=== PATIENT | female | born 1955 | race Caucasian/White ===

== ENCOUNTER 2016-12-13 05:21 | Day surgery (SDC) | payer BC ==
[2016-12-12 14:55] LABS: BASOPHILS 0.2 % (0-2); EOSINOPHILS 4.2 % (0-7); HEMATOCRIT 40.2 % (36.0-48.0); HEMOGLOBIN 13.7 g/dL (12-16); IMMATURE GRANULOCYTES 0.2 % (0-5); LYMPHOCYTES 34.1 % (15-50); MCH 31.1 pg (26.0-34.0); MCHC 34.1 g/dL (31.0-37.0); MCV 91.4 fL (80.0-100.0); MEAN PLATELET VOLUME 10.8 fL (7.4-10.4); NEUTROPHILS 56.3 % (40-80); PLATELET COUNT 207 10x3/uL (130-400); RDW 13.9 % (11.5-14.5)
[2016-12-12 15:32] LABS: CALC OSMOLALITY 278 mosm/kg (275-300); CALCIUM 9.8 mg/dL (8.5-10.1); CARBON DIOXIDE 28.6 mmol/L (21.0-32.0); CHLORIDE - SERUM 103 mmol/L (98-107); CREATININE - SERUM 0.7 mg/dL (0.6-1.3); GLUCOSE 100 mg/dL (74-106); POTASSIUM - SERUM 3.5 mmol/L (3.5-5.1); SODIUM 141 mmol/L (136-145); UREA NITROGEN 8 mg/dL (7-18); eGFR NON AFRICAN AMERICAN > 90 mL/min (90-120)
[~2016-12-13 05:21] MED LIST: BAYER CHEWABLE81 MG PO; GABAPENTIN100 MG PO
[2016-12-13] MEDS ORDERED: LISINOPRIL5 MG PO (06:12)
[2016-12-13] MEDS ORDERED: INCRUSE ELLI62.5 MCG INH (06:13)
[2016-12-13 06:14] VITALS: BP 119/93; BMI 31.6
[2016-12-13] MEDS ORDERED: GLUCOPHAGE500 MG PO (06:45)
[2016-12-13] MEDS ORDERED: HYDROCODONE-APA1 TAB PO (09:01)
--- NOTE | 2016-12-13 10:19 | NUR ---
1015 [facility] [place] DIET SERVED. PT. READJUSTED IN BED.
--- NOTE | 2016-12-13 11:14 | OP ---
PATIENT NAME: ANSON KAY MEDICAL RECORD: [id number] :57 LOCATION:D.OPS ADMISSION DATE: SURGEON: AJ TINAJERO MD DATE OF OPERATION: 12/13/2016 PREOPERATIVE DIAGNOSES: 1. Umbilical hernia. 2. Right inguinal hernia. 3. Chronic obstructive pulmonary disease. 4. Hypertension. 5. Hypercholesterolemia. 6. Tobacco dependence syndrome. POSTOPERATIVE DIAGNOSES: 1. Umbilical hernia. 2. Right inguinal hernia. 3. Chronic obstructive pulmonary disease. 4. Hypertension. 5. Hypercholesterolemia. 6. Tobacco dependence syndrome. PROCEDURE: 1. Umbilical hernia repair without mesh. 2. Right inguinal hernia repair with medium PHS mesh. SURGEON: Aj Tinajero MD REPORT OF PROCEDURE: The patient's abdomen was prepped and draped in sterile fashion. A semicircular incision was made on the inferior aspect of the umbilicus. Electrocautery was used to dissect through the subcutaneous tissues and through the umbilical stalk. We then took down the hernia sac all the way down to the fascial edges. The fascial defect was about a centimeter in greatest diameter. We placed the abdominal contents back into the abdomen. We then reapproximated the hernia defect transversely using interrupted 0 Prolenes times 4. There was good approximation of the tissue and actually appeared to be no significant tension. The umbilicus was tacked down with a single interrupted 3-0 Vicryl. The subcutaneous tissues were reapproximated with interrupted 3-0 Vicryl and the skin was closed with running subcutaneous 5-0 Monocryl. 7 mL of 0.25% Marcaine with epinephrine was infused in the surrounding tissues. We then approached the right groin. An oblique incision was made above the inguinal ligament. Electrocautery was used to dissect through the subcutaneous tissues to the external oblique fascia. This fascia was incised with 15-blade and opened up using electrocautery to the external ring. The patient had a large fatty fat-containing hernia sac, which appeared to be direct in nature. We took down the round ligament and ligated with 3-0 silks. We then placed all the contents back into the abdominal cavity. A medium PHS mesh was inserted into the hernia defect and sutured down on all 4 sides using multiple interrupted 0 Vicryl. We irrigated out the wound with normal saline and assured there was no bleeding. The external oblique fascia was closed with running 2-0 Vicryls, Brayan's was closed with interrupted 3-0 Vicryls, and the skin was closed with running subcutaneous 5-0 Monocryl. A total of 10 mL of 0.25% Marcaine with epinephrine was infused into the surrounding tissues and the wounds were dressed appropriately. COMPLICATIONS: None. OPERATIVE REPORT [id number] ANSON KAY CONDITION: Stable. ANESTHESIA: General endotracheal and local. BLOOD LOSS: Minimal. TRANSINT:[id number] Voice Confirmation ID: [id number] DOCUMENT ID: [id number] AJ TINAJERO MD at 1114 CC: JAN OMALLEY MD [id number] DICTATION DATE: 12/13/16905 ELECTRICAL LINE WORKER: 12/13/16 0951 [facility] [address] [place] [address]
--- NOTE | 2016-12-13 13:33 | NUR ---
1330 DC INSTS REVIEWED VOICED UNDERSTANDING, RX GIVEN. RELEASED IN WC WITH ESCORT, DAUGHTER CUSTOMER SU[employer]OC[employer].
== END 2016-12-13 13:34 | disposition home or self-care (01) ==
LOC: D.OPS 05:21 → D.PAN 07:30 → D.OPS 13:34
PROVIDERS: Surgery
DX: K42.9 Umbilical hernia without obstruction or gangrene (principal); K40.90 Unilateral inguinal hernia, without obstruction or gangrene, not specified as recurrent; J44.9 Chronic obstructive pulmonary disease, unspecified; I10 Essential (primary) hypertension; E78.00 Pure hypercholesterolemia, unspecified; F17.200 Nicotine dependence, unspecified, uncomplicated; Z01.812 Encounter for preprocedural laboratory examination

== ENCOUNTER → 2017-03-30 20:58 | Outpatient (CLI) | payer BC ==
[~2017-03-30 20:58] MED LIST changes: +GLUCOPHAGE500 MG PO; +HYDROCODONE-APA1 TAB PO; +INCRUSE ELLI62.5 MCG INH; +LISINOPRIL5 MG PO
== END | disposition home or self-care (01) ==
LOC: D.MAMMO 13:00
DX: Z12.31 Encounter for screening mammogram for malignant neoplasm of breast (principal)

== ENCOUNTER 2018-04-23 08:00 | Outpatient (CLI) | payer OTHER | END 2018-04-23 09:00 | disposition home or self-care (01) | LOC: D.MAMMO 08:00 | PROVIDERS: ATTEND Family Medicine | DX: Z12.31 Encounter for screening mammogram for malignant neoplasm of breast (principal) ==

== ENCOUNTER → 2018-05-23 16:39 | Outpatient (CLI) | payer OTHER | END | disposition home or self-care (01) | LOC: D.MAMMO 13:30 | PROVIDERS: ATTEND Family Medicine | DX: R92.8 Other abnormal and inconclusive findings on diagnostic imaging of breast (principal) ==

== ENCOUNTER 2020-05-14 05:15 | Day surgery (SDC) | payer OTHER ==
[2020-05-11 14:14] LABS: BASOPHILS 0.4 % (0-2); EOSINOPHILS 3.6 % (0-7); HEMATOCRIT 41.1 % (36.0-48.0); HEMOGLOBIN 13.5 g/dL (12-16); IMMATURE GRANULOCYTES 0.2 % (0-5); LYMPHOCYTE ABS# 3.81 10x3/uL (1.18-3.74); LYMPHOCYTES 37.7 % (15-50); MCH 30.1 pg (26.0-34.0); MCHC 32.8 g/dL (31.0-37.0); MCV 91.7 fL (80.0-100.0); MEAN PLATELET VOLUME 10.8 fL (7.4-10.4); NEUTROPHIL ABS# 5.26 10x3/uL (1.56-6.13); NEUTROPHILS 52.1 % (40-80); RBC 4.48 10x6/uL (4.00-5.40); RDW 14.5 % (11.5-14.5); WBC 10.1 10x3/uL (4.8-10.8)
[2020-05-11 14:22] LABS: CALC OSMOLALITY 279 mosm/kg (275-300); CALCIUM 9.2 mg/dL (8.5-10.1); CARBON DIOXIDE 28.5 mmol/L (21.0-32.0); CHLORIDE - SERUM 103 mmol/L (98-107); CREATININE - SERUM 0.7 mg/dL (0.6-1.3); GLUCOSE 99 mg/dL (74-106); POTASSIUM - SERUM 3.5 mmol/L (3.5-5.1); SODIUM 141 mmol/L (136-145); UREA NITROGEN 9 mg/dL (7-18); eGFR NON AFRICAN AMERICAN 90 mL/min (90-120)
[2020-05-11 14:39] LABS: PLATELET COUNT 283 10x3/uL (130-400)
[~2020-05-14] VITALS: Ht 157.5 cm; Wt 70.0 kg
[2020-05-14] VITALS (12 sets, daily range): BP systolic 88–138; BP diastolic 49–84; Ht 157.5 cm; Wt 70.0 kg
[~2020-05-14 05:15] MED LIST changes: +LIPITOR20 MG PO; +LISINOPRIL40 MG PO; -LISINOPRIL5 MG PO; +MOBIC7.5 MG PO; +NORVASC10 MG PO; +ULTRAM50 MG PO
--- NOTE | 2020-05-14 10:35 | NUR ---
RECEIVED PT FROM PACU VIA BED ACCOMPANIED BY PACU STAFF X2. PT AWAKE, ALERT, CONVERSANT AND ORIENTED X3. IV TO RIGHT WRIST INFUSING TO GRAVITY; IV PLACED TO IVP INFUSING AT 125CC/HR. 3 ABDOMINAL INCISIONS NOTED; 1 @ UMBILICUS AND 1 EACH AT RIGHT AND LEFT LOWER ABDOMEN. INCISIONS CDI WITH DERMABOND. VYAS IN PLACED, SECURED ON RIGHT THIGH WITH STAT LOCK DEVICE; VYAS DRAINING LIGHT YELLOW, CLEAR URINE. SCD'S IN PLACE AND CYCLING. 02 SAT INITIALLY 89-90% WITH 3L PER NC UP ARRIVAL FROM PACU. PACU STAFF ENCOURAGED PT TO DEEP BREATHE AND COUGH; 02 SAT REMAINS AT 90%. O2 INCREASED TO 4L; HOB ELEVATED; PT INSTRUCTED ON AND USED INCENTIVE SPIROMETER X3. O2 SAT REACHED 94% WITH DEEP BREATHING AND INCREASED O2. CONTINUE TO MONITOR.
--- NOTE | 2020-05-14 10:58 | NUR ---
PT'S DAUGHTER AT BEDSIDE.
--- NOTE | 2020-05-14 11:45 | NUR ---
PT REQUESTING PAIN MEDICATION. DR. YOUNG NOTIFIED AND ORDERS RECEIVED.
--- NOTE | 2020-05-14 12:15 | NUR ---
O2 SAT 100% ON 4L. OXYGEN DECREASED TO 3L PER NC. CONTINUE TO MONITOR.
--- NOTE | 2020-05-14 13:45 | NUR ---
PT RESTING QUIETLY WITH EYES CLOSED. STATES GOOD PAIN RELIEF WITH DILUADID. NO NEEDS VOICED AT THIS TIME.
--- NOTE | 2020-05-14 14:45 | NUR ---
PT SITTING UP IN BED WATCHING TV. DAUGHTER AT BEDSIDE. COKE GIVEN TO DRINK. NO NEEDS OR CONCERNS VOICED AT THIST TIME.
--- NOTE | 2020-05-14 17:00 | NUR ---
PT SITTING UP IN BED EATING AND WATCHING TV. NO NEEDS VOICED AT THIS TIME.
--- NOTE | 2020-05-14 17:58 | NUR ---
DR. YOUNG CALLED TO UNIT. STATUS UPDATE GIVEN. ORDERS RECEIVED.
--- NOTE | 2020-05-14 18:11 | NUR ---
PT RESTING QUIETLY WITH EYES CLOSED.
--- NOTE | 2020-05-14 19:00 | NUR ---
SHIFT REPORT WAS GIVEN BY LUCIA BEACH
--- NOTE | 2020-05-14 19:15 | NUR ---
WALKING ROUNDS DOEN WITH YONG. MET PT AND HER DAUGHTER. I EXPLAINED THAT I WOULD BE BACK IN A FEW MINUTES TO DO A FULL ASSESSMENT
--- NOTE | 2020-05-14 20:00 | NUR ---
IN PT ROOM TO DO VS. TOLD PT I'D BE BACK. PT IS WATCHING TV WITH HER DAUGHTER.
--- NOTE | 2020-05-14 20:00 | NUR ---
VS TAKEN. O2 SATS 91%. HAD PT TAKE SOME DEEP BREATHS TO TRY TO BRING THE PULSE OX UP SOME. THE HIGHEST IT WOULD GO WAS 92% I BUMPED THE O2 TO 3L TO SEE IF THAT HELPED BRING IT UP TO AT LEAST 94
--- NOTE | 2020-05-14 20:15 | NUR ---
CALLED RT TO SEE IF THEY WOULD JUST LOOK AT THE PT. I WAS TOLD UNLESS I HAD A DR ORDER THAT THEY COULD NOT. AT VS TIME PT PULSE OX WAS 92%. I HAD HER TAKE DEEP BREATHES. SHE NEVER GOT ABOVE 92 AND I BUMPED HER O2 TO 3L NC. ONE OF THE RT'S HAPPENED TO BE WALKING BY AND SHE STOPPED IN TO LOOK AT PT CHART. SHE SAID THAT SMOKING 1PPD, COPE AND ASTHMA PROBABLY HAD HER O2 SATS IN OR ABOUT THAT RANGE. SHE WAS THANKED FOR DROPPING BY.
--- NOTE | 2020-05-14 21:00 | NUR ---
ASSESSMENT COMPLETED. PT IS RECOVERING FROM A MASTECTOMY ON THE LEFT SIDE. SHE IS A LEFT ARM RESERVED. HER INCISION IS HEALING VERY WELL. NO SWELLING NOTED. PT HAS THREE SMALL INCISIONS FROM HER LAP HYST TODAY. ALL THREE ARE CLEAN AND DRY WITH NO DRAINAGE NOTED. SHE IS ON O2 @ 3L VIA NC AT THIS TIME. SHE IS HAVING NO PROBLEMS WITH HER RESPITATIONS. VS GOOD. PT HAS AN IV IN THE RIGHT WRIST WITH RL INFUSING AT 125ML/HR. SHE HAS A VYAS CATHETER DRAINING CLEAR YELLOW URINE. VYAS CARE WAS PERFORMED. LUNG SOUNDS ARE DIMINISHED. SHE HAS NO PRODUCTIVE COUGH BUT WHEN SHE USES THE IS SHE COUGHS A CRUPY COUGH, BUT DOES NO COUGH ANYTHING UP. SHE PULLS ABOUT 500 ON THE IS. SHE WAS INSTRUCTED TO USE THE IS EVERY HOUR FOR 10X THAT SHE IS AWAKE. SHE WAS TOLD, ALSO, THAT USE OF THE IS WAS TO HELP PREVENT POST OP PNEUMONIA. SHE IS WEARING HER SCD'S WITHOUT C/O. SHE WAS TOLD THAT THE SCD'S HELPED PREVENT POST OP DVT. PT HAS A VYAS DRAINING YELLOW URINE. SHE DID NOT REALIZE THAT SHE HAD THE VYAS IN. PT IS PLEASANT AND COOPERATIVE. SHE HAS NO C/O PAIN.
[2020-05-15] VITALS: BP 98/60
--- NOTE | 2020-05-15 | NUR ---
PT AWAKE FOR VS. O2 SAT 91. WHEN ASKED IF PT HAS ANY PAIN SHE STATES JUST A LITTLE GAS AND THAT'S ALL. SHE WENT DIRECTLY BACK TO SLEEP AFTER VS.
[2020-05-15 04:00] VITALS: BP 119/72
--- NOTE | 2020-05-15 04:00 | NUR ---
VS TAKEN. CANNOT GET O2 SAT ABOVE 89 EVEN WITH DEEP BREATHS AND BLOWING IT OUT. O2 IS AT 3L/NASAL CANNULA. PT IS HAVING NO PROBLEMS WITH BREATHING AND SHE IS AWAKE AND ALERT. LAB HERE TO DRAW HER BLOOD.
--- NOTE | 2020-05-15 04:45 | NUR ---
TORADOL 30 MG GIVEN IV. PT STILL AWAKE, ALERT AND WATCHING TV. VYAS BAG EMPTIED WITH 1300 ML URINE DRAINED. PT WANTED SOMETHING TO DRINK AND I GAVE HER A LIST OF JUICES WE HAD. I BROUGHT HER A GLASS OF GRAPE JUICE.
[2020-05-15 05:58] LABS: HEMATOCRIT 34.2 % (36.0-48.0); HEMOGLOBIN 10.8 g/dL (12-16); MCH 29.5 pg (26.0-34.0); MCHC 31.6 g/dL (31.0-37.0); MCV 93.4 fL (80.0-100.0); MEAN PLATELET VOLUME 11.4 fL (7.4-10.4); RBC 3.66 10x6/uL (4.00-5.40); WBC 9.5 10x3/uL (4.8-10.8)
--- NOTE | 2020-05-15 06:00 | NUR ---
PT AWAKE AND ALERT WHEN I WENT IN HER ROOM TO GIVE HER PO MEDS. SHE ASKED FOR A CUP OF COFFEE AND I DELIVERED IT TO HER. SHE HAS NO C/O PAIN. SHE IS MOVING AROUND GOOD IN BED. WATCHING TV
--- NOTE | 2020-05-15 07:53 | NUR ---
AM ASSESSMENT COMPLETED. IV SALINE LOCKED AND VYAS CATH REMOVED WITH 350ML CLEAR URINE NOTED TO UROMETER. LAP INCISION CLEAN AND DRY. PT ABLE TO GET SELF UP TO BATHROOM WITH NO ASSISTANCE NEEDED. UNABLE TO VOID AT THIS TIME, REASSURE HER THIS WAS NOT UNCOMMON AND WOULD TRY AGAIN AFTER SHE FINISHED BREAKFAST. PROVIDED HER WITH MESH BRIEFS AND MARIMAR PAD. SMALL ORANGE JUICE REQUESTED. CALL LIGHT IN REACH.
[2020-05-15 08:06] VITALS: BP 119/72
[2020-05-15 08:13] LABS: BASOPHILS 0.2 % (0-2); EOSINOPHILS 2.2 % (0-7); HEMATOCRIT 34.2 % (36.0-48.0); HEMOGLOBIN 10.7 g/dL (12-16); IMMATURE GRANULOCYTES 0.1 % (0-5); LYMPHOCYTE ABS# 2.93 10x3/uL (1.18-3.74); LYMPHOCYTES 31.5 % (15-50); MCH 29.2 pg (26.0-34.0); MCHC 31.3 g/dL (31.0-37.0); MCV 93.4 fL (80.0-100.0); MONOCYTES 5.6 % (2-11); NEUTROPHIL ABS# 5.61 10x3/uL (1.56-6.13); NEUTROPHILS 60.4 % (40-80); PLATELET COUNT 234 10x3/uL (130-400); RBC 3.66 10x6/uL (4.00-5.40); WBC 9.3 10x3/uL (4.8-10.8)
--- NOTE | 2020-05-15 08:50 | NUR ---
FSBS ORDER RECEIVED FROM DR YOUNG, EXPLAINED THIS TO PT AND SHE STATES THAT SHE HAS JUST HAD SIP OF BLACK COFFEE, WAITING ON HER DAUGHTER TO EAT BREAKFAST. FSBS OF 120, PT LOOKS AT GLUCOMETER AND SAYS "THATS ABOUT RIGHT"
--- NOTE | 2020-05-15 09:12 | NUR ---
CALLED TO ROOM, PT HAS VOIDED 200ML CLEAR URINE. DENIES PAIN OR BURNING WITH VOID. UNDERSTANDS THAT AT LEAST ONE MORE VOID NEEDS TO BE COLLECTED.
[2020-05-15 09:41] LABS: HCG SERUM NEGATIVE (NEGATIVE)
--- NOTE | 2020-05-15 09:45 | NUR ---
PT IS UP DRESSED AND WALKING IN HALLS WITH HER DAUGHTER. DENIES PAIN AT THIS TIME.
--- NOTE | 2020-05-15 10:18 | NUR ---
DR YOUNG CALLED REQUESTED BY PT. REPORT GIVEN OF CURRENT VS AND LAB RESULTS. STATES THAT SHE HAS ONE PATIENT LEFT TO SEE AT CLINIC AND WILL OVER TO TALK AND GIVE SCRIPTS.
--- NOTE | 2020-05-15 10:30 | NUR ---
DR YOUNG AT BEDSIDE TALKING WITH PT ABOUT PRECAUTIONS AND DISCHARGE. PT AND HER DAUGHTER VOICE THEIR UNDERSTANDING AND DENY ANY QUESTIONS.
--- NOTE | 2020-05-15 10:50 | NUR ---
VERBAL AND WRITTEN D/C INSTRUCTIONS GONE OVER, SHE STATES HER UNDERSTANDING AND DENIES ANY QUESTIONS OR CONCERNS. WHEELCHAIR OFFERED BUT PT REFUSES. AMB OFF UNIT WITH FAMILY, NO SIGNS OF DISTRESS NOTED.
--- NOTE | 2020-06-02 13:03 | OP ---
PATIENT NAME: ANSON KAY MEDICAL RECORD: [id number] :59 LOCATION:D.OPS ADMISSION DATE: SURGEON: KORY RICHARDSON DO DATE OF OPERATION: 05/14/2020 DATE OF SERVICE: 05/14/2020 PREOPERATIVE DIAGNOSES: Pelvic organ prolapse with pelvic pain. POSTOPERATIVE DIAGNOSES: Pelvic organ prolapse with pelvic pain. PRIMARY SURGEON: Kory Richardson DO GILL BOX FIXER SURGEON: Bennett Lindsey MD ANESTHESIA: General endotracheal tube intubation. PROCEDURE: Total laparoscopic hysterectomy, bilateral salpingo-oophorectomy and cystoscopy. FINDINGS: Small mobile uterus sounded to 7 cm. Grossly normal pelvic anatomy. Prior tubal ligation. Cystoscopy demonstrated bilateral flow from ureteral ostia and no trauma or sutures noted in bladder. SPECIMEN: Uterus, bilateral fallopian tubes and bilateral ovaries and cervix. ESTIMATED BLOOD LOSS: 100 mL. IV FLUIDS: Per anesthesia. URINE OUTPUT: 500 mL clear yellow urine. INFECTION PROPHYLAXIS: Ancef, vaginal Betadine prep. COMPLICATIONS: None. Prior to procedure risks and benefits of surgery were discussed with the patient including bleeding, pain, infection, damage to surrounding structures such as the bowel, bladder, ureters, neurovascular structures, increased risk of scar tissue formation and VTE especially with tobacco use were reviewed with the patient. The patient expressed understanding and desired to proceed with surgical management. Consent signed in the office and preoperatively. DESCRIPTION OF PROCEDURE: The patient was taken to the operating room where general anesthesia was administered and found to be adequate. She was prepped and draped in normal sterile fashion in dorsal lithotomy position with Antwan stirrups. A Norris catheter was placed. A speculum was then placed in the vagina and anterior lip of the cervix was grasped with tenaculum. The uterus sounded to 7 cm and then dilated to accommodate the VESIcare manipulator. The speculum and tenaculum were removed and attention was then turned to the abdomen. Marcaine was injected into all port sites beginning at the umbilical area. A 5-mm incision was made through the skin and trocar placed under direct entry technique. Peritoneum was created with CO2 gas and examination on entry revealed no signs of injury and normal anatomical structures. The patient was then placed in Trendelenburg and two more 5-mm OPERATIVE REPORT [id number] ANSON KAY trocars were placed under direct visualization without issue, one in the left lower quadrant and one in the right lower quadrant in standard technique, taking care to avoid epigastric vessels Beginning on the right side, the IP ligament was identified by lifting the tube towards the anterior wall of the abdomen. The Thunderbeat was used to clamp and ligate the IP ligament in 3 sequential overlapping regions to ensure secure blood supply prior to cutting. The IP was then cut in the middle of coagulated portion. Pedicle hemostatic. The broad ligament was then sequentially clamped, ligated and cut working in the direction of the round ligament being mindful to stay away from the uterine sidewall vasculature. The round ligament was then ligated and cut with good hemostasis. The anterior leaf of the broad ligament was taken down on the right side towards the peritoneal reflection at the base of the bladder adjacent to the cervix. The same process was repeated on the left side to meet in midline. Uterine arteries skelontonized. Uterine arteries are bilaterally clamped, cauterized and ligated. The pedicles were checked and hemostatic. Cup of manipulator palpated and that this level the he vaginal vault was incised circumferentially with the Thunderbeat. The uterus, tubes and ovaries were delivered through the vagina and sent to pathology. A sterile glove was placed in the vagina to perform a pneumatic seal. Pedicles and cuff edges were examined and hemostasis was achieved. Attention was then turned to the vagina and vaginal cuff sutured from vaginal approach. Uterosacral ligaments incorporated in a modified Scott's fashion to provide anterior support. The vault was closed in an anterior and posterior fashion after placing a Scott's stitch. Closure was completed and Scott's tied to allow the apical support to the vaginal vault. Hemostasis adequate. Cystoscopy then performed and no trauma/or injury noted with good flow at bilateral ostia. Instruments removed. Incisions closed in subcuticular fashion with 3-0 monocyrl and dermabond. Patient was awakened and taken to recovery room in stable condition. All lap, needle and instrument counts were correct x2. TRANSINT:[id number] Voice Confirmation ID: [id number] DOCUMENT ID: [id number] KORY RICHARDSON DO at 1303 CC: [id number] DICTATION DATE: 05/30/20 1250 MOBILE SALES TECHNICIAN: 05/30/20 5153 [facility] 05/15/20 [facility] [address] [facility] [place] [id number]
== END 2020-05-15 10:50 | disposition home or self-care (01) ==
LOC: D.OPS 05:15 → D.WS 10:07 → D.OPS 05-15 10:50
PROVIDERS: ATTEND Obstetrics & Gynecology
DX: R10.2 Pelvic and perineal pain (principal); N81.9 Female genital prolapse, unspecified; I10 Essential (primary) hypertension; E78.5 Hyperlipidemia, unspecified; J44.9 Chronic obstructive pulmonary disease, unspecified; Z01.818 Encounter for other preprocedural examination